=== PATIENT | female | born 1975 | race Caucasian/White ===

== ENCOUNTER 2020-12-16 18:43 | Emergency (ER) | payer OTHER ==
[~2020-12-16] VITALS: Ht 160 cm; Wt 81.6 kg
[2020-12-16 18:56] VITALS: BP 143/80
[2020-12-16] MEDS ORDERED: FAMOTIDINE 20 MG TAB PO ONE (19:25)
[2020-12-16] MEDS ORDERED: ALUMINUM HYD/MAG/SIMETHICONE 30 ML, DICYCLOMINE HCL LIQUID 20 MG, LIDOCAINE VISCOUS 2% ... PO ONE ×3 (19:25)
[2020-12-16] MEDS ORDERED: SUCRALFATE 1 GM TAB PO SCH (19:25)
[2020-12-16] MEDS ORDERED: ALUMINUM HYD/MAG/SIMETHICONE 30 ML UDC ONE (19:29)
[2020-12-16] MEDS ORDERED: DICYCLOMINE HCL LIQUID 10 MG/5 ML UDC ONE (19:29)
[2020-12-16] MEDS ORDERED: LIDOCAINE VISCOUS 2% 20 ML UDC ONE (19:29)
[2020-12-16] MEDS ORDERED: ONDANSETRON 4 MG/2 ML VIAL IVP ONE (19:30)
[2020-12-16] MEDS ORDERED: NACL 0.9% 1,000 ML IV SCH (19:30)
[2020-12-16 19:38] LABS: APPEARANCE,URINE CLEAR (CLEAR); BILIRUBIN,URINE NEGATIVE (NEGATIVE); BLOOD, URINE NEGATIVE (NEGATIVE); COLOR,URINE YELLOW (YELLOW); LEUKOCYTE ESTERASE ,URINE NEGATIVE (NEGATIVE); NITRITE, URINE NEGATIVE (NEGATIVE); PH,URINE 7.5 (5.0-9.0); UGLUCOSE NEGATIVE (NEGATIVE)
[2020-12-16 19:49] LABS: BASOPHILS # (AUTO) 0.1 K/uL (0.00-0.22); BASOPHILS % (AUTO) 0.6 % (0.0-2.0); EOSINOPHILS # (AUTO) 0.4 K/uL (0-0.4); EOSINOPHILS % (AUTO) 4.8 % (0.0-4.0); HEMATOCRIT 39.1 % (36-48); HEMOGLOBIN 12.3 g/dL (12.0-16.0); LYMPHOCYTES # (AUTO) 1.9 K/uL (2.5-16.5); LYMPHOCYTES % (AUTO) 23.5 % (20.5-51.1); MEAN CORPUSCULAR HEMOGLOBIN 25 pg (27-31); MEAN CORPUSCULAR HGB CONC 32 g/dL (33-37); MEAN CORPUSCULAR VOLUME 78.1 fL (80-94); MONOCYTES # (AUTO) 0.6 K/uL (0.8-1.0); MONOCYTES % (AUTO) 6.9 % (1.7-9.3); NEUTROPHILS # (AUTO) 5.3 K/uL (1.8-7.7); NEUTROPHILS % (AUTO) 64.2 % (42.2-75.2); PLATELET COUNT (AUTO) 386 K/uL (140-450); RED CELL DISTRIBUTION WIDTH 16.4 % (11.6-13.7); WHITE BLOOD COUNT (AUTO) 8.2 K/uL (4.8-10.8)
[2020-12-16 20:36] LABS: ALBUMIN 3.6 g/dL (3.4-5.0); ANION GAP 10.8 (8-16); CARBON DIOXIDE 26.9 mmol/L (21-32); TOTAL BILIRUBIN 0.4 mg/dL (0.0-1.0)
[2020-12-16 20:42] LABS: POTASSIUM 4.7 mmol/L (3.5-5.1)
[2020-12-16] MEDS ORDERED: PANT40EC56 PO (21:10)
[2020-12-16] MEDS ORDERED: SUCR1TAB35 PO (21:10)
[2020-12-16] MEDS ORDERED: MAG355OR2 PO (21:10)
[2020-12-16 21:35] VITALS: BP 143/80
== END 2020-12-16 21:35 | disposition home or self-care (01) ==
LOC: MED 18:43
DX: K29.70 Gastritis, unspecified, without bleeding (principal); R11.0 Nausea; K21.9 Gastro-esophageal reflux disease without esophagitis; Z90.49 Acquired absence of other specified parts of digestive tract; Z98.890 Other specified postprocedural states
CPT/HCPCS: 36415; 80053; 81003; 81025; 83690; 84703; 85025; 96361; 96374; 99284; J2405; J7030

== ENCOUNTER 2021-03-07 23:36 | Emergency (ER) | payer OTHER ==
[~2021-03-07] VITALS: Ht 160 cm; Wt 81.6 kg
[~2021-03-07 23:36] MED LIST: MAG355OR2 PO; PANT40EC56 PO; SUCR1TAB35 PO
[2021-03-07 23:45] VITALS: BP 121/92
--- NOTE | 2021-03-07 23:48 | NUR ---
to lobby a/w bed ambulatory
[2021-03-08] MEDS ORDERED: ALUMINUM HYD/MAG/SIMETHICONE 30 ML UDC PO ONE (00:50)
[2021-03-08 01:14] LABS: BASOPHILS # (AUTO) 0.1 K/uL (0.00-0.22); EOSINOPHILS # (AUTO) 0.4 K/uL (0-0.4); EOSINOPHILS % (AUTO) 5.4 % (0.0-4.0); HEMATOCRIT 35.5 % (36-48); HEMOGLOBIN 11.4 g/dL (12.0-16.0); LYMPHOCYTES # (AUTO) 2.1 K/uL (2.5-16.5); LYMPHOCYTES % (AUTO) 29.1 % (20.5-51.1); MEAN CORPUSCULAR HEMOGLOBIN 25 pg (27-31); MEAN CORPUSCULAR HGB CONC 32 g/dL (33-37); MEAN CORPUSCULAR VOLUME 77.8 fL (80-94); MONOCYTES # (AUTO) 0.6 K/uL (0.8-1.0); MONOCYTES % (AUTO) 8.1 % (1.7-9.3); NEUTROPHILS % (AUTO) 56.4 % (42.2-75.2); PLATELET COUNT (AUTO) 368 K/uL (140-450); RED BLOOD CELL COUNT(AUTO) 4.56 MIL/uL (4.20-5.40); WHITE BLOOD COUNT (AUTO) 7.1 K/uL (4.8-10.8)
--- NOTE | 2021-03-08 01:15 | NUR ---
RECEIVED IN BED 10 WITH C/O EPIGASTRIC PAIN . "I GET HEART BURN" POINTS TO EPIGASTRIC AREA WHEN ASKED WHERE PAIN IS. CM = SR WITHOUT ECTOPY. SKIN IS WARM AND DRY. PMH : DENIES ALLERGIES : DASHA
[2021-03-08 01:29] LABS: ALBUMIN 3.1 g/dL (3.4-5.0); ANION GAP 12.2 (8-16); CARBON DIOXIDE 26.6 mmol/L (21-32); CREATININE 0.9 mg/dL (0.6-1.3); POTASSIUM 3.8 mmol/L (3.5-5.1); TOTAL BILIRUBIN 0.2 mg/dL (0.0-1.0)
--- NOTE | 2021-03-08 02:48 | NUR ---
Patient discharged with v/s stable. Written and verbal after care instructions given and explained. Patient verbalized understanding. Ambulatory with steady gait. All questions addressed prior to discharge. Advised to follow up with PMD.
== END 2021-03-08 02:48 | disposition home or self-care (01) ==
LOC: MED 23:36
DX: R12 Heartburn (principal); K21.9 Gastro-esophageal reflux disease without esophagitis; Z88.0 Allergy status to penicillin; Z79.899 Other long term (current) drug therapy
CPT/HCPCS: 36415; 71045; 80053; 83690; 84484; 85025; 93005; 99285

== ENCOUNTER 2021-06-08 02:24 | Emergency (ER) | payer OTHER ==
[~2021-06-08] VITALS: Ht 160 cm; Wt 93.4 kg
[2021-06-08 02:33] VITALS: BP 153/75
--- NOTE | 2021-06-08 02:43 | NUR ---
PT AMBULATED TO BATHROOM FOR CLEAN CATCH SPECIMEN.
--- NOTE | 2021-06-08 02:49 | NUR ---
PT AMBULATED TO THE LOBBY WITH STEADY GATE.
--- NOTE | 2021-06-08 03:52 | NUR ---
PT AMBULATED TO BED 11 WITH STEADY GAIT.
[2021-06-08] MEDS ORDERED: ALUMINUM HYD/MAG/SIMETHICONE 30 ML UDC PO ONE (04:10)
--- NOTE | 2021-06-08 04:10 | NUR ---
PATIENT COAX4 REPORT HEARTBURN AND ACID REFLUX. STATES SHE TAKES PROTONIX AT HOME AND HAS HAD TO COME IN FOR A GI COCKTAIL BEFORE.
--- NOTE | 2021-06-08 04:11 | NUR ---
REPORTS EATING A BIG MEAL LATE AT NIGHT PRIOR TO PAIN.
[2021-06-08 04:48] LABS: BASOPHILS # (AUTO) 0.1 K/uL (0.00-0.22); BASOPHILS % (AUTO) 0.8 % (0.0-2.0); EOSINOPHILS % (AUTO) 13.9 % (0.0-4.0); HEMATOCRIT 35.8 % (36-48); HEMOGLOBIN 11.5 g/dL (12.0-16.0); LYMPHOCYTES # (AUTO) 1.8 K/uL (2.5-16.5); MEAN CORPUSCULAR HEMOGLOBIN 24 pg (27-31); MEAN CORPUSCULAR HGB CONC 32 g/dL (33-37); MEAN CORPUSCULAR VOLUME 75.8 fL (80-94); MONOCYTES # (AUTO) 0.5 K/uL (0.8-1.0); MONOCYTES % (AUTO) 7.4 % (1.7-9.3); NEUTROPHILS # (AUTO) 3.9 K/uL (1.8-7.7); NEUTROPHILS % (AUTO) 52.9 % (42.2-75.2); PLATELET COUNT (AUTO) 346 K/uL (140-450); RED BLOOD CELL COUNT(AUTO) 4.73 MIL/uL (4.20-5.40); RED CELL DISTRIBUTION WIDTH 15.7 % (11.6-13.7); WHITE BLOOD COUNT (AUTO) 7.3 K/uL (4.8-10.8)
[2021-06-08 05:00] LABS: ANION GAP 11.3 (8-16); CARBON DIOXIDE 25.9 mmol/L (21-32); CREATININE 0.8 mg/dL (0.6-1.3); POTASSIUM 4.2 mmol/L (3.5-5.1)
[2021-06-08 05:06] LABS: ALBUMIN 3.2 g/dL (3.4-5.0); TOTAL BILIRUBIN 0.1 mg/dL (0.0-1.0)
[2021-06-08] MEDS ORDERED: PANT40EC56 PO ×2 (07:05→07:38)
--- NOTE | 2021-06-08 07:11 | NUR ---
RECEIVED REPORT FROM NITA ORDOÑEZ. ASSUMED CARE AT THIS TIME.
[2021-06-08 07:33] VITALS: BP 143/88
--- NOTE | 2021-06-08 07:43 | NUR ---
Patient discharged with v/s stable. Written and verbal after care ABOUT GASTRITIS AND HIATAL HERNIA instructions given and explained. Patient alert, oriented and verbalized understanding of instructions. Ambulatory with steady gait. All questions addressed prior to discharge. ID band removed. Patient advised to follow up with PMD. Rx of PANTOPRAZOLE given.Opportunity to ask questions provided and answered.
== END 2021-06-08 07:43 | disposition home or self-care (01) ==
LOC: MED 02:24
DX: K21.9 Gastro-esophageal reflux disease without esophagitis (principal); K44.9 Diaphragmatic hernia without obstruction or gangrene; Z88.0 Allergy status to penicillin; Z79.899 Other long term (current) drug therapy
CPT/HCPCS: 36415; 71045; 80048; 80076; 83690; 84484; 85025; 93005; 99285

== ENCOUNTER 2023-12-07 08:33 | Emergency (ER) | payer OTHER ==
[~2023-12-07] VITALS: Ht 160 cm; Wt 93.4 kg
[~2023-12-07 08:33] MED LIST changes: +SUCR-34 PO; -SUCR1TAB35 PO
[2023-12-07 08:34] VITALS: BP 148/82; PULSE 85; TEMP 98.1; O2SAT 97
[2023-12-07] MEDS: PANTOPRAZOLE 40 MG INJ VIAL IVP ONE (10:18)
[2023-12-07] MEDS: NACL 0.9% 1,000 ML IV ONE (10:18)
[2023-12-07] MEDS: ONDANSETRON 4 MG/2 ML VIAL IVP ONE (10:19)
[2023-12-07 10:23] VITALS: TEMP 97.8
[2023-12-07] MEDS ORDERED: ONDA-188 SL (11:04)
[2023-12-07] MEDS ORDERED: FAMO-90 PO (11:04)
[2023-12-07 11:24] VITALS: BP 107/58; PULSE 72; RESP 16; O2SAT 98
== END 2023-12-07 11:24 | disposition home or self-care (01) ==
LOC: MED 08:33
DX: E86.0 Dehydration (principal); K29.70 Gastritis, unspecified, without bleeding; R11.10 Vomiting, unspecified; R19.7 Diarrhea, unspecified; K21.9 Gastro-esophageal reflux disease without esophagitis; Z79.899 Other long term (current) drug therapy; Z88.0 Allergy status to penicillin
CPT/HCPCS: 81025; 96361; 96374; 96375; 99284; C9113; J2405; J7030